=== PATIENT | female | born 1960 | race Caucasian/White ===

== ENCOUNTER → 2023-09-03 07:34 | Outpatient (REF) | payer OTHER, BC, SELFPAY | LOC: RAD 07:34 | PROVIDERS: ATTENDING PHYSICIAN Specialist; FAMILY PHYSICIAN Family Medicine Sports Medicine | DX: M25.551 Pain in right hip (principal); M25.552 Pain in left hip | CPT/HCPCS: 73522 ==

== ENCOUNTER → 2024-02-07 06:54 | Outpatient (REF) | payer OTHER, BC, SELFPAY | LOC: RAD 06:54 | PROVIDERS: ATTENDING PHYSICIAN Neurological Surgery; FAMILY PHYSICIAN Family Medicine Sports Medicine | DX: M54.16 Radiculopathy, lumbar region (principal) | CPT/HCPCS: 72110; 72131 ==

== ENCOUNTER 2024-08-10 13:34 | Inpatient (IN) | payer OTHER, BC, SELFPAY ==
[2024-08-10] VITALS (15 sets, daily range): BP systolic 97–160; BP diastolic 71–99; PULSE 69–135; BMI 26.4
--- NOTE | 2024-08-10 10:41 | ED.GENMED ---
ED Provider Triage
<Alyssa Holcomb PA-C - Last Filed: 08/10/24 10:52>
-
Patient seen by provider in Triage?: Seen in Triage
64 y/o f
htn
[employer] employee, rn
concerned she is having stroke
sudden headache and then she collapsed into a chair when she stood up (onet sxs about 1.5 hours ago)
she said she laid down but realized she doesn't feel right
the doctor at the facility thought her right face seemed off and her speech was mildly slurred
no vision changes, vomiting, confusion
no h/o stroke
no h/o migraines
STROKE ALERT CALLED based on sudden onset of symptoms within the 6 hour timeframe
pt's stroke score is 3 at most (dysarthrhia, LUE weak, and slight flattening R face)
but pt also with tremor R arm on intention; no drift;
odd affect
History of Present Illness
<Alyssa Holcomb PA-C - Last Filed: 08/10/24 10:52>
General
Chief Complaint: Dizziness
Time Seen by Provider: 08/10/24 10:44
<Amauri Cortes DO - Last Filed: 08/10/24 12:38>
General
Source: patient
Exam Limitations: none
History of Present Illness
History of Present Illness:
See MDM
Past History
<Alyssa Holcomb PA-C - Last Filed: 08/10/24 10:52>
Past History
ED Past Medical History: HTN and Hypercholesterolemia
ED Past Surgical History: Cholecystectomy and Other (Gastric surgery/ERCP)
Phy Exam
<Amauri Cortes DO - Last Filed: 08/10/24 12:38>
Physical Exam
Physical Exam:
See MDM
Scores
<Alyssa Holcomb PA-C - Last Filed: 08/10/24 10:52>
NIH Stroke Score
Level of Consciousness: 0 - Alert
LOC Questions: 0-Answers both correctly
LOC Commands: 0-Performs both correctly
Best Horizontal Gaze: 0-Normal
Visual Davies: 0=Normal, no visual loss
Facial Palsy: 1=Minor paralysis
Motor - Right Arm: 0=No drift 10 seconds
Motor - Left Arm: 1=Drift < 10 seconds
Motor - Right Le-No drift 5 seconds
Motor - Left Le-No drift 5 seconds
Limb Ataxia: 0-Absent
Sensation: 0-Normal
Best Language: 0-No aphasia
Dysarthria: 1-Mild slurring
Extinction and Inattention: 0-No abnormality
Total Score:: 3
<Amauri Cortes DO - Last Filed: 08/10/24 12:38>
NIH Stroke Score
Motor - Left Le-No drift 5 seconds
Total Score:: 3
Course
<Alyssa Holcomb PA-C - Last Filed: 08/10/24 10:52>
Orders/Labs/Results
Orders:
Orders
08/10/24 10:45
CT HEAD STROKE ALERT W/o Cont Urgent
Comment:
Reason For Exam: slurred speech, headache
CT HEAD/NECK ANG STROKE ALERT Urgent
Comment:
Reason For Exam: slurred speech, headache
08/10/24 10:46
NEUROLOGY CONSULT Urgent
Consulting Provider: Ophelia Morales
Was physician already notified: Yes
08/10/24 10:47
Electrocardiogram (*1) Urgent
Reason for Study: TIA/Stroke
EKG- Treatment ONCE
08/10/24 11:33
Type+Screen Urgent
Complete Blood Count/With Diff Urgent
Comprehensive Metabolic Panel Urgent
PTT Urgent
Prothrombin Time Urgent
Troponin I Urgent
08/10/24 11:41
ABO2 Urgent
BBK Wristband Number:
Associate notified that ABO2 has been ordered: [id number]
Date: 08/10/24
Time: 11:42
Mine Laborer ID: [id number]
Abnormal Lab Results
08/10/24
11:33
WBC 2.9 L 10^3/uL
(4.8-10.8)
RBC 3.92 L 10^6/uL
(4.20-5.40)
MCV 105.6 H fL
(81.0-99.0)
MCH 36.0 H pg
(27.0-31.0)
Plt Count 106 L 10^3/uL
(130-400)
Absolute Lymphs (auto) 0.6 L 10^3/uL
(1.2-3.4)
Glucose 102 H mg/dl
(70-99)
AST 88 H U/L
(14-36)
ALT 87 H U/L
(0-35)
08/10/24 11:33
08/10/24 11:33
Vital Signs
Initial and Last Documented VS:
Initial Vital Signs
Pulse Resp BP Pulse Ox
109 18 150/99 100
08/10/24 10:42 08/10/24 10:42 08/10/24 10:42 08/10/24 10:42
Last Documented Vital Signs
Temp Pulse Resp BP Pulse Ox
97.8 F 109 18 150/99 100
08/10/24 11:02 08/10/24 10:42 08/10/24 10:42 08/10/24 10:42 08/10/24 10:42
<Amauri Cortes, DO - Last Filed: 08/10/24 12:38>
Orders/Labs/Results
Orders:
Orders
08/10/24 10:45
CT HEAD STROKE ALERT W/o Cont Urgent
Comment:
Reason For Exam: slurred speech, headache
CT HEAD/NECK ANG STROKE ALERT Urgent
Comment:
Reason For Exam: slurred speech, headache
08/10/24 10:46
NEUROLOGY CONSULT Urgent
Consulting Provider: Ophelia Morales
Was physician already notified: Yes
08/10/24 10:47
Electrocardiogram (*1) Urgent
Reason for Study: TIA/Stroke
EKG- Treatment ONCE
08/10/24 11:33
Type+Screen Urgent
Complete Blood Count/With Diff Urgent
Comprehensive Metabolic Panel Urgent
PTT Urgent
Prothrombin Time Urgent
Troponin I Urgent
08/10/24 11:41
ABO2 Urgent
BBK Wristband Number:
Associate notified that ABO2 has been ordered: [id number]
Date: 08/10/24
Time: 11:42
Mine Laborer ID: [id number]
Abnormal Lab Results
08/10/24
11:33
WBC 2.9 L 10^3/uL
(4.8-10.8)
RBC 3.92 L 10^6/uL
(4.20-5.40)
MCV 105.6 H fL
(81.0-99.0)
MCH 36.0 H pg
(27.0-31.0)
Plt Count 106 L 10^3/uL
(130-400)
Absolute Lymphs (auto) 0.6 L 10^3/uL
(1.2-3.4)
Glucose 102 H mg/dl
(70-99)
AST 88 H U/L
(14-36)
ALT 87 H U/L
(0-35)
01/06/25 11:33
08/10/24 11:33
Vital Signs
Initial and Last Documented VS:
Initial Vital Signs
Pulse Resp BP Pulse Ox
109 18 150/99 100
08/10/24 10:42 08/10/24 10:42 08/10/24 10:42 08/10/24 10:42
Last Documented Vital Signs
Temp Pulse Resp BP Pulse Ox
97.8 F 109 18 150/99 100
08/10/24 11:02 08/10/24 10:42 08/10/24 10:42 08/10/24 10:42 08/10/24 10:42
<Amauri Cortes, DO - Last Filed: 08/10/24 12:38>
MDM/Problems Addressed
Differential Diagnosis Includes:
HPI and MDM Narrative:
64-year-old female presenting to the emergency department for concern for headache, slurred speech and left-sided weakness. 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 She was seen by the onsite procurement clerk and there is
concern for left-sided facial drooping. On arrival to the emergency department, a stroke alert was called from triage and she was sent directly to CT scan. Immediately, neurology was at bedside
Upon further questioning, it appears that symptoms started around 7 AM which puts her out of the TNK window. Patient got to work at 630 she started writing her note around 7 AM. At that time, she realized that her handwriting was abnormal
Physical exam
General: Well appearing and non-toxic
HEENT: protecting airway
Neck: appears supple
CV: No evidence of cyanosis. Regular rate and rhythm
Resp: No accessory muscle use
Abd: Non-distended
Extremities: No deformities
Neuro: alert. Very slight flattening of left nasal fold. Very mild dysarthria
Psych: Normal affect
Skin: Intact
Problems Addressed including Acute and Chronic Conditions affecting care:
1. Strokelike symptoms
Acuity: acute
Prognosis: stable
Details: Given onset, stroke alert called and patient sent to CT scanner immediately
Updates
CTA negative. Blood without clinical significant abnormalities. Will admit for further workup
Differential Diagnosis (but not limited to): Stroke, intracranial hemorrhage, TIA
Testing considered: Carotid ultrasound
Drug therapy (if applicable): OTC meds, please see d/c instruction regarding Rx drugs
Amount and/or Complexity of Data Reviewed
Clinical info obtained from: Patient
External data reviewed: N/A
Labs I independently reviewed (but not limited to): Hemoglobin
Radiology: The CT scan was personally and independently reviewed. In addition, official CT report reviewed.
Pulse Ox: not hypoxic
EKG independently reviewed: Sinus tachycardia, normal axis, no STEMI
Schedule Planning Manager: Sinus rhythm
Critical Care: N/A
Risk of Complication:
Social Determinants of health: Good social support
Discussed with other providers: Neurologist, Hospitalist
Escalation of Care includes Admit/Obs: Given strokelike symptoms and ongoing symptoms, will admit
Occasional wrong word or 'sound a like' substitutions may have occurred due to the inherent limitations of voice recognition software. Read the chart carefully and recognize, using context, where substitutions have occurred.
<Amauri Cortes DO - Last Filed: 08/10/24 12:38>
*Critical Care Note
Total Time (30-74mins, 75-104mins- exclusive of procedures): Not Applicable
ED Attending Note
<Alyssa Holcomb PA-C - Last Filed: 08/10/24 10:52>
-
Portions of this chart may have been created with voice recognition software.� Occasional wrong word or��sound alike� substitutions may have occurred due to the inherent limitations of voice recognition software.
Discharge Plan
Departure
Patient Disposition: Admit
Date of Disposition: 08/10/24
Time of Disposition: 12:36
Admit to: Med/Surg
Presentation/result/management discussed w/ accepting /: Hospitalist
Discharge Problem:
Stroke-like symptoms, Acute lower GI bleeding
Prescriptions:
No Action
meloxicam 15 mg tablet
15 mg PO DAILY
clonazepam 0.5 mg tablet
0.5 mg PO BIDPRN PRN (Reason: tinnitis)
methocarbamol 750 mg tablet
750 mg PO BIDPRN PRN (Reason: muscle spasm)
valsartan 160 mg tablet
160 mg PO BID
rosuvastatin 20 mg tablet
20 mg PO DAILY
cholecalciferol (vitamin D3) [Vitamin D3] 50 mcg (2,000 unit) Capsule
100 mcg PO DAILY
Referrals:
Oneal Dockery DO [Family Provider] -
Interventions
Interventions:
ED- Neurological Assessment Last Done: 08/10/24 11:05
Discharge Date and Time
Print Language: PUERTO RICAN
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
[2024-08-10 11:33] LABS: Glucose - Point of Care 94 mg/dl (70-99)
[2024-08-10 11:51] LABS: INR 0.91; PT 12.6 Sec (11.4-14.6)
[2024-08-10 11:52] LABS: APTT 26.7 Sec (23.4-35.0)
[2024-08-10 11:55] LABS: ALT (SGPT) 87 U/L (0-35); AST (SGOT) 88 U/L (14-36); Albumin 4.8 g/dl (3.5-5.0); Alkaline Phosphatase 105 U/L (38-126); Blood Urea Nitrogen 17 mg/dl (7-17); Calcium 9.7 mg/dl (8.4-10.2); Carbon Dioxide 24 mmol/L (22-30); Chloride 104 mmol/L (98-107); Glucose 102 mg/dl (70-99); Potassium 4.3 mmol/L (3.5-5.1); Sodium 139 mmol/L (135-145); Total Bilirubin 0.4 mg/dl (0.2-1.3); Total Protein 7.6 g/dl (6.3-8.2); eGFR > 60.00
[2024-08-10 12:06] LABS: Troponin I < 0.012 ng/ml
[2024-08-10 12:18] LABS: % Basophils 0.3 % (0-2); % Eosinophils 2.4 % (0-6); % Immature Granulocytes 0.3 % (0-0.5); % Lymphocytes 21.6 % (20.5-51.1); % Monocytes 5.5 % (1.7-9.3); % Neutrophils 69.9 % (42.2-75.2); Absolute Eosinophils 0.1 10^3/uL (0-0.7); Absolute Lymphocytes 0.6 10^3/uL (1.2-3.4); Absolute Monocytes 0.2 10^3/uL (0.1-0.6); Hematocrit 41.4 % (37.0-47.0); Hemoglobin 14.1 g/dL (12.0-16.0); Mean Corp Hgb Conc. 34.1 g/dL (33.0-37.0); Mean Corpuscular Volume 105.6 fL (81.0-99.0); Mean Platelet Volume 9.2 fL (7.4-10.4); Nucleated Red Blood Cells % 0 %; Platelet Count 106 10^3/uL (130-400); Red Blood Cell Count 3.92 10^6/uL (4.20-5.40); Red Cell Dist. Width 12.4 % (11.5-14.5); White Blood Cell Count 2.9 10^3/uL (4.8-10.8)
--- NOTE | 2024-08-10 12:43 | HPS.HSE ---
Family Physician
-
Family Physician: Oneal Dockery
Chief Complaint
-
left sided weakness
History of Present Illness
64-year-old woman with pMH for chronic tinnitus,HLD, muscle spasm, HTN presented to us with sudden onset of CORADO, with left sided weakness since this morning. today as she was getting up from the chair, she fell backwards with her hair to the floor.
denied hitting head. she fell on her left side. for past one week, she is feeling very tired, weak. today patient stated dizzy and she was having trouble writing. denied fever, chills, congestion, cough. denied chest pain, sob. The patient admits to
6 months of intermittent hematochezia which had significantly worsened today in the morning. She also reports right sided abdominal pain as well as chronic bilateral tinnitus.denied dysuria or hematuria. she is on meloxicam for her back pain.
CT, CTA with no acute findings. admitting for further management.
hgb stable.last colonoscopy was six years ago.
Medical History
Past Medical History
Past Medical History: Reports Other
Additional Past Medical History:
Hypertension
Hyperlipidemia
Past Surgical History: Reports Other
Additional Past Surgical History:
Cholecystectomy
hxt of colostomy and reversal
Social History
Tobacco: Non-smoker
Alcohol: None
Drug: None
Employment: Employed
Family History
Family History: Not pertinent
Allergies / Home Medications
Allergies reflects when Allergies were last updated in [employer].
Home Medications with original date entered in [employer]
Allergy/Medication List:
Allergies
Allergy/AdvReac Type Severity Reaction Status Date / Time
No Known Allergies Allergy Unverified 04/07/23 12:57
Home Medications
cholecalciferol (vitamin D3) 50 mcg (2,000 unit) capsule (Vitamin D3) 100 mcg PO DAILY 08/10/24
clonazepam 0.5 mg tablet 0.5 mg PO BIDPRN PRN tinnitis 08/10/24
meloxicam 15 mg tablet 15 mg PO DAILY 08/10/24
methocarbamol 750 mg tablet 750 mg PO BIDPRN PRN muscle spasm 08/10/24
rosuvastatin 20 mg tablet 20 mg PO DAILY 08/10/24
valsartan 160 mg tablet 160 mg PO BID 08/10/24
Review of Systems
-
Constitutional: Reports No Symptoms
EENT: Reports No Symptoms
Respiratory: Reports No Symptoms
Cardiac: Reports No Symptoms
Abdomen/GI: Reports Abdominal Pain, Diarrhea and Bloody Stools
: Reports No Symptoms
Musculoskeletal: Reports No Symptoms
Skin: Reports No Symptoms
Neurological: Reports Dizzy, Headache and Weakness
Endocrine: Reports No Symptoms
Hematologic/Lymphatic: Reports No Symptoms
Psych: Reports No Symptoms
Physical Exam
Vital Signs
Vital Signs
Temp Pulse Resp BP Pulse Ox
97.8 F 109 18 150/99 100
08/10/24 11:02 08/10/24 10:42 08/10/24 10:42 08/10/24 10:42 08/10/24 10:42
Physical Exam
General: Well Developed, Well Nourished and No Apparent Distress
HEENT: NormoCephalic, Moist mucous membranes and Atraumatic
Respiratory: Clear
Cardiac: S1/S2 and Regular Rhythm; No Murmur or Rub
GI: Soft, Non Tender, Non Distended and Normal Bowel Sounds; No Organomegaly
Rectal: Deferred by Provider
Musculoskeletal: No Clubbing, No Cyanosis and No Edema
Skin: No Rash
Neuro: Nonfocal/grossly intact and Other (left sided weaknes)
Psych: Calm
Laboratory Results
-
08/10/24 11:33
08/10/24 11:33
Laboratory Results
PT 12.6 Sec (11.4-14.6) 08/10/24 11:33
INR 0.91 08/10/24 11:33
APTT 26.7 Sec (23.4-35.0) 08/10/24 11:33
Total Bilirubin 0.4 mg/dl (0.2-1.3) 08/10/24 11:33
AST 88 U/L (14-36) H 08/10/24 11:33
ALT 87 U/L (0-35) H 08/10/24 11:33
Alkaline Phosphatase 105 U/L (38-126) 08/10/24 11:33
Troponin I < 0.012 ng/ml 08/10/24 11:33
Data Reviewed
-
Lab Data: Labs Reviewed by me
Impression/Plan
-
# Bright rectal bleeding
-Hemoglobin stable at 14.1
-Continue to trend hemoglobin
-Transfuse to hemoglobin less than 7
-IV PPI
-Clear liquid diet
-GI consult
# New onset headache/left sided weakness rule out acute CVA/TIA
- head neck CTA with no significant stenosis of carotid arterial bilaterally. No findings to suggest internal carotid artery and vertebral artery dissection bilaterally/no findings to suggest proximal intracranial artery stenosis bilaterally.0.9 cm
slightly low attenuation right lobe thyroid nodule. This could be better evaluated with elective Thyroid Ultrasound.
Head CT with no acute intracranial abnormality
-Obtain orthostatics
-Aspirin 81 mg day
-Obtain MRI PT/OT consult
#sinus tachycardia
-HR tachy at times
-ctm
# Leukopenia/thrombocytopenia
-WBC 2.9, platelets 106
-Continue to monitor
# Chronic transaminitis
-AST 88, ALT 87
-Patient denied any abdominal pain
-Continue to monitor
#chronic tinnitus
-clonazepam continued
#chronic back pain
-hold meloxicam
-continue methocarbamol
#HLD
-statin
#essential HTN
-losartan continued with hold parameter
#DVT prophylaxis
-scd
b
-full code
--- NOTE | 2024-08-10 13:30 | W.PN.UPDATE ---
Update Note
Progress Note Update
This note serves as an addendum to the H&P by shoe lacer TIKI Ashanti BAY
HPI
64 F Non Smoker, [email or web address] employee , Lt handed , HX chronic peripheral vertigo, HLD, HTN seen at ER
- unwitnessed fall at her office prior to presentation.
- per EMS ' Based on EMR she 'collapsed into a chair when she stood up'
- sudden headache and then she collapsed into a chair when she stood up (onet sxs about 1.5 hours ago)
- the doctor at the facility thought her right face seemed off and her speech was mildly slurred
- concerned is having stroke ' STROKE ALERT CALLED' based on sudden onset of symptoms within the 6 hour timeframe
- stroke score is 3 at most (dysarthrhia, LUE weak, and slight flattening R face)
- tremor R arm on intention; no drift; odd affect
- HX chronic bilateral tinnitus.
Reports 6 months of intermittent hematochezia which had significantly worsened today in the morning.
- reports right sided abdominal pain a
ROS
no vision changes, vomiting, confusion
No prior HX stroke
No HX migraines
Vital Signs
Temp Pulse Resp BP Pulse Ox
97.8 F 109 18 150/99 100
08/10/24 11:02 08/10/24 10:42 08/10/24 10:42 08/10/24 10:42 08/10/24 10:42
PE
Gen: slow cognitive speed
HEENT: symmetric face
Neck: supple
Lungs: CTA
Cor: RRR S1 S2
Abdomen: tender Rt LQ. No rigidity
MAIL PROCESSING ASSOCIATE: Increased motor tone Rt > Lt , cogwheel rigidity on the rt
MS: no edema
Psych: flat affect
Data
Abnormal Lab Results
08/10/24
11:33
WBC 2.9 L
RBC 3.92 L
MCV 105.6 H
MCH 36.0 H
Plt Count 106 L
Absolute Lymphs (auto) 0.6 L
Glucose 102 H
AST 88 H
ALT 87 H
Pending Covid
EKG
SINUS TACHYCARDIA
OTHERWISE NORMAL ECG
WHEN COMPARED WITH ECG OF 07-APR-2023 13:00,
NO SIGNIFICANT CHANGE WAS FOUND
Confirmed by JONAH CADENA, [facility] ([id number] on 08/10/2024 11:16:31 AM
08/10/24 HCT
No acute intracranial abnormality. ASPECT score: 10
H & N CTA
No hemodynamically significant stenosis of the carotid arterial system bilaterally.
No findings to suggest internal carotid artery or vertebral artery dissection bilaterally.
No findings to suggest proximal intracranial arterial stenosis bilaterally.
Approximate 0.9 cm slightly low attenuation right lobe thyroid nodule.
This could be better evaluated with elective Thyroid Ultrasound
No prior hospitalist admission:
ASSESSMENT & PLAN
Stroke alert; NEG HCT. NEG H & N CTA
Clinical features of Parkinsonism.
Chronic peripheral vertigo HX
-Fall precautions
- to btain orthostatic vital signs.
- Avoid dopamine blockers
- Aspirin 81 mg once a day if no contraindications from GI perspective.
- TFTs, PTH, ESR, CRP
- Brain MRI without gadolinium in AM
- PT
- Neuro consulted
Intermittent hematochezia vs bright rd blood
RLQ tenderness. FHX POS for Colon CA
Stable Hgb, Stable HD state
Denied HX Hemorrhoids
DDX: LGIB ? ischemic colitis
- Lactate
- Clear
- trend H & H
- GI consult
DVT Px: SCD
Full code
IP TLM
--- NOTE | 2024-08-10 14:17 | CON.GI ---
Addendum entered and electronically signed by Kia Lan Do, MD 08/10/24 16:14:
I saw and examined the patient.
The MANAGED SERVICES SALES CONSULTANT's note was reviewed and I agree with the note.
Comment: Angelica is a 64yo W works in [employer] with h/o HTN, CBD stone s/p perforation with hepaticojejunostomy 2004 complicated by ulcer bleeding followed by redo surgery 2006 who presents with rectal bleeding and diffuse abdominal pain. Of
note due to back pain recently using mobic daily basis. No other nsaids. She tried to see GI but could not get appt until October 2024. She is concerned for colon cancer as both parents with it in the past. Her last colonoscopy was 6yrs ago at
[place] and EGD more than 20yrs ago. Vitals stable. exam diffusely tender to palpation. rectal with normal tone no stool output. Labs reviewed normal Hbg. AST/ALT mildly elevated with normal TB/AP
Impression
- Diffuse abd pain
Given her history of several surgeries ddx is wide including pSBO, stricture etc
PUD in setting of mobic use is another consideration
- BRBPR
- HTN
- H/o CBD stone s/p ERCP with perf s/p 2 surgeries
- Tinnitus
- GERD
Recommendations
- Obtain records from [facility] to see her post surgical anatomy
- Recommend CTAP with oral IV contrast
- Protonix 40mg IV BID
- CLD given her severity of pain
- IVF
- Add on lipase
- Monitor stool output and serial H/H
Will follow with you
Original Note:
Consultation
-
Date/Time Consultation Requested: 08/10/24 1400
Date/Time Consultation Performed: 08/10/24 1420
Requesting Provider: LEXA Gonsales
Performing Provider: LEXA Curry, Kia Benítez MD
Reason for Consultation: rectal bleeding, abdominal pain, elevated transamines
Medical History
Chief Complaint / HPI
History of Present Illness:
Pt is a 64yo with hx HTN, hypercholesterolemia and ERCP 2004 for CBD stone with duodenal perforation at [facility] with gastric bypass, ? colonoscopy and feeding tube. She continued with bleeding after procedure and had revision around 2006. She has
been doing well for years but developed intermittent rectal bleeding with some dripping of blood and change in bowel pattern over last few months. She called GI but was awaiting appt in August. She was now noted with some confusion this am then
had diarrhea with bleeding and unwitnessed fall at work and left side weakness . She was then referred to ER for eval. With neuro symptoms she has stroke alert and asked to see for rectal bleeding, abdominal pain and mild LFT elevation with AST
88 and ALT 87. Pt also noted with leukopenia and thrombocytopenia.
In review with patient she admit to newly starting Meloxicam for back discomfort. She admits to occasional GERD and also some RLQ pain along with some nausea and vomiting. She is concerned as also both parents with hx colon CA in 80's. She
denies dysphagia, constipation or black stools. She admits to know mild LFT elevation in past and occasional Tylenol use but denies hx IVDA or hepatitis in past. Last EGD around [id number] with other GI issues and last colonoscopy at [place] 6
years ago recalls as normal.
Past Medical History
Past Medical History: HTN, Hypercholesterolemia and Other (chronic Tinnitus, muscle spasm, HTN)
Past Surgical History: Other (s/p ERCP 2004 for CBD stone with duodenal perforation with gastric bypass with feeding tube placement with GI bleed after procedure and eventual revision at [facility], colostomy and reversal )
Social History
Tobacco: Non-Smoker
Alcohol: None
Drug: None
Personal:
Living: With Family
Employment: Employed
Family History
Family History: Other (both parents with colon CA in 80's, sister with appendicitis )
Allergies / Home Medications
Allergy/AdvReac Type Severity Reaction Status Date / Time
No Known Allergies Allergy Unverified 04/07/23 12:57
�Medication �Instructions �Recorded
cholecalciferol (vitamin D3) 50 100 mcg PO DAILY 08/10/24
mcg (2,000 unit) capsule (Vitamin
D3)
clonazepam 0.5 mg tablet 0.5 mg PO BIDPRN PRN tinnitis 08/10/24
meloxicam 15 mg tablet 15 mg PO DAILY 08/10/24
methocarbamol 750 mg tablet 750 mg PO BIDPRN PRN muscle spasm 08/10/24
rosuvastatin 20 mg tablet 20 mg PO DAILY 08/10/24
valsartan 160 mg tablet 160 mg PO BID 08/10/24
Review of Systems
-
History Source: Patient
Constitutional: Reports No Symptoms
EENT: Reports No Symptoms
Respiratory: Reports No Symptoms
Abdomen/GI: Reports Abdominal Pain, Nausea, Vomiting, Diarrhea, Bloody Stools and Other (+ change in bowel pattern )
: Reports No Symptoms
Musculoskeletal: Reports No Symptoms
Skin: Reports No Symptoms
Neurological: Reports Weakness
Endocrine: Reports No Symptoms
Hematologic/Lymphatic: Reports Bleeding
Vital Signs
Temp Pulse Resp BP Pulse Ox
97.8 F 109 18 150/99 100
08/10/24 11:02 08/10/24 10:42 08/10/24 10:42 08/10/24 10:42 08/10/24 10:42
Physical Exam
Exam
General: Well Developed, Well Nourished and No Apparent Distress
HEENT: Normocephalic and Anicteric
Respiratory: Clear
Cardiac: Regular Rhythm
GI: Soft, Non Distended, Tender (RLQ) and Other (mid line scar-- LLQ scar ? prior colostomy vs feeding tube )
Rectal: Other (per Do no hemorrhoids, no stool to test no blood seen )
Musculoskeletal: No Clubbing and No Cyanosis
Skin: Warm and Dry
Neuro: Awake, Alert, AO x 3 and Other (some thickness to speech )
Psych: Calm
Results
WBC 2.9 10^3/uL (4.8-10.8) L 08/10/24 11:33
Hgb 14.1 g/dL (12.0-16.0) 08/10/24 11:33
Hct 41.4 % (37.0-47.0) 08/10/24 11:33
MCV 105.6 fL (81.0-99.0) H 08/10/24 11:33
Plt Count 106 10^3/uL (130-400) L 08/10/24 11:33
Absolute Neuts (auto) 2.0 10^3/uL (1.4-6.5) 08/10/24 11:33
PT 12.6 Sec (11.4-14.6) 08/10/24 11:33
INR 0.91 08/10/24 11:33
APTT 26.7 Sec (23.4-35.0) 08/10/24 11:33
Sodium 139 mmol/L (135-145) 08/10/24 11:33
Potassium 4.3 mmol/L (3.5-5.1) 08/10/24 11:33
Chloride 104 mmol/L (98-107) 08/10/24 11:33
Carbon Dioxide 24 mmol/L (22-30) 08/10/24 11:33
BUN 17 mg/dl (7-17) 08/10/24 11:33
Creatinine 1.0 mg/dL (0.6-1.0) 08/10/24 11:33
Calcium 9.7 mg/dl (8.4-10.2) 08/10/24 11:33
Total Bilirubin 0.4 mg/dl (0.2-1.3) 08/10/24 11:33
AST 88 U/L (14-36) H 08/10/24 11:33
ALT 87 U/L (0-35) H 08/10/24 11:33
Alkaline Phosphatase 105 U/L (38-126) 08/10/24 11:33
Diagnostic Image Results:
08/10/24- HCT-No acute intracranial abnormality.
08/10/24 CT HEAD/NECK ANG STROKE ALERT
No hemodynamically significant stenosis of the carotid arterial system bilaterally.
No findings to suggest internal carotid artery or vertebral artery dissection bilaterally.
No findings to suggest proximal intracranial arterial stenosis bilaterally.
Approximate 0.9 cm slightly low attenuation right lobe thyroid nodule. This could be better evaluated with elective Thyroid Ultrasound.
Prior GI Procedures:
EGD: last [id number] with prior GI bleed and ERCP
Colonoscopy: last 6 years ago recall as normal at [place]
Assessment / Plan
-
Pt is a 64yo with hx HTN, hypercholesterolemia and ERCP 2004 for CBD stone with duodenal perforation at [facility] with gastric bypass, ? colonoscopy with reversal and feeding tube. She continued with bleeding after procedure and had revision around
2006. She has been doing well for years but developed intermittent rectal bleeding with some dripping of blood and change in bowel pattern over last few months. She was noted today with diarrhea, bleeding and also confusion with fall, weakness and
left side weakness s/p stroke alert. She is also noted with mild transaminase elevation, mild thrombocytopenia and leukopenia on admission.
-intermittent rectal bleeding
-RLQ pain
-mild transaminase elevation with hx prior elevation
-new onset headache with left side weakness
-leukopenia
-thrombocytopenia
-macrocytosis
-recent Mobic use
-hx ERCP 2004 for CBD stone with duodenal perforation and bypass complete with recurrent bleeding then revision, colostomy with reversal
other med problems:
-HTN
-hypercholesterolemia
-chronic tinnitus
-chronic back pain
-hx kathy
PLAN:
etiology of rectal bleeding related to upper with NSAID use vs lower hemorrhoid vs other as pt reports more red blood--- no blood noted on exam
trend hbg and stool pattern
with some worsening abdominal pain proceed with CT to confirm anatomy and eval for colitis, diverticulitis etc
t/c eventual GI work up with EGD/colon when stable from neuro standpoint
trend LFT's may be chronic issue add hepatitis panel for AM, await CT
trend platelets
work up for weakness, mental status issues per neurology -- MRI brain pending
pt scheduled 08/[address] Weir for follow up
-
-
Thank you for consultation and allowing me to participate in the patient's care. Please call the valuation manager GI physician during the after hours with any questions or concerns.
[2024-08-10 14:22] LABS: COVID-19 Antigen Negative (Negative)
[2024-08-10 14:39] LABS: Glycohemoglobin (HgbA1c) 5.6 % (4.0-5.6)
--- NOTE | 2024-08-10 15:05 | PTOTSP ---
Speech Language Pathology:
Initial speech therapy assessment completed. Oropharyngeal swallow grossly within functional limits at bedside with no overt s/s aspiration observed across PO trials. Speech quality characterized by mildly reduced vocal volume. Patient with
receptive/expression language that appears intact with slow processing speed observed.
Recommend:
1) Regular solid, thin liquid diet
2) Meds as tolerated
3) Aspiration precautions
4) CLINICAL EDUCATION ACADEMIC COORDINATOR to f/u to ensure diet tolerance and for further speech and cog-linguistic tx as indicated
[2024-08-10 15:17] LABS: Erythrocyte Sed Rate 22 mm/hour (0-20)
[2024-08-10] MEDS: DILAUDID 1 MG IV ×2 (15:30→20:53)
[2024-08-10] MEDS: PROTONIX IV 40 MG IV ×2 (15:40→20:55)
[2024-08-10] MEDS: OMNIPAQUE 50 ML PO (15:40)
[2024-08-10] MEDS: NSS 1000 IV (15:41)
[2024-08-10] MEDS: NSS (PRESERVATIVE FREE) 10 ML IV ×2 (15:41→20:54)
--- NOTE | 2024-08-10 16:38 | PTCARENOTE ---
pt aaox3. nihss 0, pt states rlq abd pain. pain med as given. ivf running as ordered. ct scan dye started.
[2024-08-10 20:41] LABS: Hematocrit 34.6 % (37.0-47.0); Hemoglobin 12.2 g/dL (12.0-16.0)
--- NOTE | 2024-08-10 20:45 | PTCARENOTE ---
Pt arrived to room 434-01. Pt ambulated from stretcher to bed with standby assist. Pt AAOx3, VSS. Refer to pt NIH scale. Pt oriented to room, call victoria placed within reach. Pt told to use call victoria for assistance ambulating, pt agreeable.
[2024-08-10] MEDS: DIOVAN 160 MG PO (20:54)
[2024-08-11] VITALS (8 sets, daily range): BP systolic 90–138; BP diastolic 54–85; PULSE 64–113; O2SAT 97
[2024-08-11] MEDS: DILAUDID 1 MG IV ×3 (02:33→18:19)
[2024-08-11 08:11] LABS: Hematocrit 36.7 % (37.0-47.0); Mean Corp Hgb Conc. 35.4 g/dL (33.0-37.0); Mean Corpuscular Hgb 36.1 pg (27.0-31.0); Mean Corpuscular Volume 101.9 fL (81.0-99.0); Red Cell Dist. Width 12.2 % (11.5-14.5); White Blood Cell Count 2.7 10^3/uL (4.8-10.8)
[2024-08-11 08:30] LABS: ALT (SGPT) 70 U/L (0-35); AST (SGOT) 61 U/L (14-36); Albumin 4.2 g/dl (3.5-5.0); Alkaline Phosphatase 89 U/L (38-126); Direct Bilirubin 0.1 mg/dl (0.0-0.4); Total Bilirubin 0.5 mg/dl (0.2-1.3); Total Cholesterol 228 mg/dl (50-199); Total Protein 6.6 g/dl (6.3-8.2); Triglyceride 191 mg/dl (10-149); Very Low Density Lipoprotein 38 mg/dl (0-30)
[2024-08-11 08:37] LABS: Mean Platelet Volume 8.9 fL (7.4-10.4); Platelet Count 91 10^3/uL (130-400)
[2024-08-11 08:47] LABS: HDL Cholesterol 116 mg/dl; LDL Cholesterol, Calculated 74 mg/dl
[2024-08-11 09:05] LABS: Hepatitis B Surface Antigen Negative (Negative)
[2024-08-11 09:07] LABS: Hepatitis A IgM Antibody Negative (Negative); Hepatitis B Core Ab, IgM Negative (Negative)
[2024-08-11 09:23] LABS: Hepatitis A Antibody, Total Negative (Negative); Hepatitis B Core Ab, Total Negative (Negative); Hepatitis B Surface Antibody Positive; Hepatitis C Antibody Negative (Negative)
[2024-08-11] MEDS: DIOVAN 160 MG PO ×2 (09:51→20:14)
[2024-08-11] MEDS: CRESTOR 20 MG PO (09:51)
[2024-08-11] MEDS: NSS (PRESERVATIVE FREE) 10 ML IV ×2 (09:51→20:14)
[2024-08-11] MEDS: PROTONIX IV 40 MG IV ×2 (09:52→20:13)
--- NOTE | 2024-08-11 12:51 | W.PN.HOSP.TC ---
Addendum entered and electronically signed by Reba Murcia DO 08/11/24 16:51:
Discussed incidental thyroid nodule w the patient, she is aware and plans to f/u outpatient for ultrasound
Original Note:
Today's Communication/Plan
-
#Clinical features of Parkinsonism, no evidence for acute stroke
-Discuss plan for OP f/u with Neuro, possible Mirapex
# Acute GI bleed and RLQ abdominal pain, hemoglobin stable, patient still w severe RLQ abd pain
-IV Dilaudid prn
-cont IVF, IV PPI BID, discuss with GI evaluation today for recs - possible scope inpatient vs outpatient
#repeat CBC, CMP in am, monitor labs
#Incidental thyroid nodule
-f/u w OP US
Assessment / Plan
Assessment / Plan
Pt is a 64yo with hx HTN, CBD stone s/p perforation with hepaticojejunostomy 2004 complicated by ulcer bleeding followed by redo surgery 2006 , hypercholesterolemia and ERCP 2004 for CBD stone with duodenal perforation at [facility] with gastric
bypass, Uses Mobic daily; concerned for colon cancer due to family history. Colonoscopy 6yrs ago at [place] and EGD more than 20yrs ago.
#Clinical features of Parkinsonism, no evidence for acute stroke
#Chronic peripheral vertigo HX
- continue Fall precautions
- Avoid dopamine blockers
- Aspirin 81 mg once a day
- Discuss pt with Neurology- likely Parkinsonism/discussed starting Mirapex with patient
- PT eval
# Acute GI bleed and RLQ abdominal pain, hemoglobin stable, patient still w severe RLQ abd pain
-IV Dilaudid prn
-cont IVF
-IV PPI BID
-pending GI evaluation today for recs - possible scope inpatient vs outpatient
#Leukopenia, unsure chronicity , monitor with differential
#Thrombocytopenia, unsure chronicity, monitor with repeat lab
#Transaminitis, normal bilirubin
-patient said she's had this outpatient
#Incidental thyroid nodule
-f/u w OP US
#HTN, stable
DVT Px: SCD
Full code
IP TLM
Anticipated Discharge: 24 - 48 hours
Subjective/Interval History
-
Date of Service: August 11, 2024
The patient still c/o severe RLQ abdominal pain, had Dilaudid IV today. On clear liquids. Last episode of BRB per rectum yesterday. Family history of colon cancer (dad, mom, 3 aunts)
MRI negative for acute stroke. No hematemesis.
No CP, no SOB, Neuro saw pt this am, told nurse OK to dc NIH scores.
Objective Data
-
Labs:
Laboratory Results
08/11/24
07:11
WBC 2.7 L
Hgb 13.0
Hct 36.7 L
Plt Count 91 L
Total Bilirubin 0.5
AST 61 H
ALT 70 H
Alkaline Phosphatase 89
Vital Signs:
Vital Signs
Temp Pulse Resp BP Pulse Ox
98.4 F 79 20 132/74 99
08/11/24 11:19 08/11/24 11:19 08/11/24 11:19 08/11/24 11:19 08/11/24 11:19
I&O
08/10/24 08/11/24 08/12/24
06:59 06:59 06:59
Intake Total 480 / 480
Balance 480 / 480
[2024-08-11 13:29] LABS: Lipase 129 U/L (23-300)
--- NOTE | 2024-08-11 13:54 | W.PN.GI.CBS2 ---
Addendum entered and electronically signed by Rani Pettit MD 08/11/24 17:18:
I saw and examined the patient.
The DENTAL LABORATORY SUPERVISOR or PA's note was reviewed and I agree with the note.
Comment: Reports 1 episode of bright blood with bowel movements yesterday.
Tolerating clear liquid diet
Given recurrent intermittent rectal bleeding, will plan for colonoscopy. Multiple family members with colon cancer including father, mother and paternal aunts. No genetic testing done as far as patient is aware.
Will do EGD at the same time as she does have some intermittent epigastric discomfort
Thrombocytopenia and leukopenia, agree with outpatient hematology follow-up
Will follow
Original Note:
Today's Communication / Plan
-
etiology of rectal bleeding related to upper with NSAID use vs lower hemorrhoid vs other as pt reports more red blood--- no blood noted on exam 08/10 but more bleeding last PM
CT neg for any acute finding
hbg stable 13
add B12, folate with macrocytosis
will proceed with EGD/colon in am
cont clear diet
consider OP hematology eval for thrombocytopenia and leukopenia
hepatitis panel neg with hep B immunity
requested [place] records if able to review for GI anatomy with multiple surgeries in [id number]
NSAID avoidance
reviewed with Dr. Murcia
Assessment / Plan
-
Pt is a 64yo with hx HTN, hypercholesterolemia and ERCP 2004 for CBD stone with duodenal perforation at [facility] with gastric bypass, ? colonoscopy with reversal and feeding tube. She continued with bleeding after procedure and had revision around
2006. She has been doing well for years but developed intermittent rectal bleeding with some dripping of blood and change in bowel pattern over last few months. She was noted today with diarrhea, bleeding and also confusion with fall, weakness and
left side weakness s/p stroke alert. She is also noted with mild transaminase elevation, mild thrombocytopenia and leukopenia on admission.
08/11/24 CT A/p
1). There is no evidence of acute pathology
2). There is cholecystectomy with mild intrahepatic biliary dilatation which may be seen normally in postcholecystectomy patients.
3). There is 8 mm hepatic cyst
08/11/24 MRI brain normal
-intermittent rectal bleeding
-RLQ pain
-mild transaminase elevation with hx prior elevation
-new onset headache with left side weakness concern for parkinsonism
-leukopenia
-thrombocytopenia
-macrocytosis
-recent Mobic use
-hx ERCP 2004 for CBD stone with duodenal perforation and bypass complete with recurrent bleeding then revision, colostomy with reversal
other med problems:
-GERD
-HTN
-hypercholesterolemia
-chronic tinnitus
-chronic back pain
-hx kathy
-tinnitus
-hepatic cyst on imaging
PLAN:
etiology of rectal bleeding related to upper with NSAID use vs lower hemorrhoid vs other as pt reports more red blood--- no blood noted on exam 08/10 but more bleeding last PM
CT neg for any acute finding
hbg stable 13
add B12, folate with macrocytosis
will proceed with EGD/colon in am
cont clear diet
consider OP hematology eval for thrombocytopenia and leukopenia
hepatitis panel neg with hep B immunity
requested [place] records if able to review for GI anatomy with multiple surgeries in [id number]
NSAID avoidance
reviewed with Dr. Murcia
pt scheduled 08/[address] Weir for follow up may be able to change pending EGD/colon results
Subjective
Subjective
Date of Service: August 11, 2024
on clear diet still with some bleeding last PM while in MRI, abdominal pain improved and noted intermittent
Objective
Data Reviewed
Laboratory Data:
Laboratory Results
08/11/24 07:11
08/10/24 11:33
Laboratory Results
PT 12.6 Sec (11.4-14.6) 08/10/24 11:33
INR 0.91 08/10/24 11:33
APTT 26.7 Sec (23.4-35.0) 08/10/24 11:33
Total Bilirubin 0.5 mg/dl (0.2-1.3) 08/11/24 07:11
AST 61 U/L (14-36) H 08/11/24 07:11
ALT 70 U/L (0-35) H 08/11/24 07:11
Alkaline Phosphatase 89 U/L (38-126) 08/11/24 07:11
Lipase 129 U/L (23-300) 08/11/24 07:11
Vital Signs and I&O:
Vital Signs
Temp Pulse Resp BP Pulse Ox
98.4 F 79 20 132/74 99
08/11/24 11:19 08/11/24 11:19 08/11/24 11:19 08/11/24 11:19 08/11/24 11:19
I&O
08/10/24 08/11/24 08/12/24
06:59 06:59 06:59
Intake Total 480 / 480
Balance 480 / 480
Physical Exam
Physical Exam
HEENT: Anicteric and Moist mucous membranes
Cardiology: Normal Sinus Rhythm
Pulmonary: Clear
GI: Soft, Non Distended and Tender (minimal tenderness improved from 08/10)
Extremities: No Edema
Neuro: Non Focal
--- NOTE | 2024-08-11 14:39 | CM ---
ict development manager reviewed patient's chart and met with patient and patient states she lives with her spouse and son in a split level home, patient was independent with adl's and ambulation, no dme, home when stable, no needs.
PCP: Dr. Oneal Dockery
Pharmacy [facility]
Plan; Home when stable.
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
[2024-08-11] MEDS: NSS 1000 IV (15:19)
[2024-08-11] MEDS: MIRAPEX 0.125 MG PO ×2 (16:21→21:55)
[2024-08-11 16:45] LABS: Vitamin B12 1000 pg/ml (239-931)
--- NOTE | 2024-08-11 17:16 | W.PN.GI.CBS2 ---
Assessment / Plan
-
Pt is a 64yo with hx HTN, hypercholesterolemia and ERCP 2004 for CBD stone with duodenal perforation at [facility] with gastric bypass, ? colonoscopy with reversal and feeding tube. She continued with bleeding after procedure and had revision around
2006. She has been doing well for years but developed intermittent rectal bleeding with some dripping of blood and change in bowel pattern over last few months. She was noted today with diarrhea, bleeding and also confusion with fall, weakness and
left side weakness s/p stroke alert. She is also noted with mild transaminase elevation, mild thrombocytopenia and leukopenia on admission.
08/11/24 CT A/p
1). There is no evidence of acute pathology
2). There is cholecystectomy with mild intrahepatic biliary dilatation which may be seen normally in postcholecystectomy patients.
3). There is 8 mm hepatic cyst
08/11/24 MRI brain normal
-intermittent rectal bleeding
-RLQ pain
-mild transaminase elevation with hx prior elevation
-new onset headache with left side weakness concern for parkinsonism
-leukopenia
-thrombocytopenia
-macrocytosis
-recent Mobic use
-hx ERCP 2004 for CBD stone with duodenal perforation and bypass complete with recurrent bleeding then revision, colostomy with reversal
other med problems:
-GERD
-HTN
-hypercholesterolemia
-chronic tinnitus
-chronic back pain
-hx kathy
-tinnitus
-hepatic cyst on imaging
PLAN:
etiology of rectal bleeding related to upper with NSAID use vs lower hemorrhoid vs other as pt reports more red blood--- no blood noted on exam 08/10 but more bleeding last PM
CT neg for any acute finding
hbg stable 13
add B12, folate with macrocytosis
will proceed with EGD/colon in am
cont clear diet
consider OP hematology eval for thrombocytopenia and leukopenia
hepatitis panel neg with hep B immunity
requested [facility] if able to review for GI anatomy with multiple surgeries in [id number]
NSAID avoidance
reviewed with Dr. Murcia
pt scheduled 08/[address] Weir for follow up may be able to change pending EGD/colon results
Subjective
Subjective
Date of Service: August 11, 2024
Objective
Data Reviewed
Laboratory Data:
Laboratory Results
08/11/24 07:11
08/10/24 11:33
Laboratory Results
PT 12.6 Sec (11.4-14.6) 08/10/24 11:33
INR 0.91 08/10/24 11:33
APTT 26.7 Sec (23.4-35.0) 08/10/24 11:33
Total Bilirubin 0.5 mg/dl (0.2-1.3) 08/11/24 07:11
AST 61 U/L (14-36) H 08/11/24 07:11
ALT 70 U/L (0-35) H 08/11/24 07:11
Alkaline Phosphatase 89 U/L (38-126) 08/11/24 07:11
Lipase 129 U/L (23-300) 08/11/24 07:11
Vital Signs and I&O:
Vital Signs
Temp Pulse Resp BP Pulse Ox
98.4 F 76 20 130/83 98
08/11/24 15:12 08/11/24 15:12 08/11/24 15:12 08/11/24 15:12 08/11/24 15:12
I&O
08/10/24 08/11/24 08/12/24
06:59 06:59 06:59
Intake Total 480 / 480
Balance 480 / 480
[2024-08-11 17:17] LABS: Calcium 8.8 mg/dl (8.4-10.2)
[2024-08-11] MEDS: NSS 500 IV (17:37)
[2024-08-11] MEDS: NULYTELY SOLUTION 4 LITERS PO (17:38)
[2024-08-11 17:44] LABS: Intact PTH 111.6 pg/ml (13.6-85.8)
[2024-08-12] VITALS (7 sets, daily range): BP systolic 122–142; BP diastolic 68–88; PULSE 71; O2SAT 97
[2024-08-12] MEDS: DILAUDID 1 MG IV (00:45)
[2024-08-12 08:22] LABS: Hematocrit 31.5 % (37.0-47.0); Hemoglobin 11.1 g/dL (12.0-16.0); Mean Corp Hgb Conc. 35.2 g/dL (33.0-37.0); Mean Corpuscular Hgb 36.2 pg (27.0-31.0); Mean Corpuscular Volume 102.6 fL (81.0-99.0); Mean Platelet Volume 9.1 fL (7.4-10.4); Platelet Count 80 10^3/uL (130-400); Red Blood Cell Count 3.07 10^6/uL (4.20-5.40); Red Cell Dist. Width 12.2 % (11.5-14.5)
[2024-08-12 08:42] LABS: ALT (SGPT) 55 U/L (0-35); AST (SGOT) 42 U/L (14-36); Albumin 3.4 g/dl (3.5-5.0); Alkaline Phosphatase 70 U/L (38-126); Blood Urea Nitrogen 8 mg/dl (7-17); Calcium 8.6 mg/dl (8.4-10.2); Carbon Dioxide 24 mmol/L (22-30); Chloride 107 mmol/L (98-107); Estimated Creatinine Clearance 73 ml/min; Glucose 90 mg/dl (70-99); Potassium 3.8 mmol/L (3.5-5.1); Sodium 138 mmol/L (135-145); Total Bilirubin 0.3 mg/dl (0.2-1.3); Total Protein 5.5 g/dl (6.3-8.2); eGFR > 60.00
[2024-08-12 09:27] LABS: % Immature Granulocytes 0.5 % (0-0.5); % Lymphocytes 47.2 % (20.5-51.1); % Neutrophils 40.3 % (42.2-75.2); Absolute Eosinophils 0.1 10^3/uL (0-0.7); Absolute Lymphocytes 0.9 10^3/uL (1.2-3.4); Absolute Monocytes 0.2 10^3/uL (0.1-0.6); Absolute Neutrophils 0.8 10^3/uL (1.4-6.5); Nucleated Red Blood Cells % 0 %
[2024-08-12] MEDS: PROTONIX IV 40 MG IV (09:55)
[2024-08-12] MEDS: NSS (PRESERVATIVE FREE) 10 ML IV (09:56)
[2024-08-12] MEDS: DIOVAN 160 MG PO (09:56)
[2024-08-12] MEDS: CRESTOR 20 MG PO (09:59)
[2024-08-12] MEDS: MIRAPEX 0.125 MG PO ×2 (09:59→15:48)
--- NOTE | 2024-08-12 12:31 | W.PN.HOSP.TC ---
Addendum entered and electronically signed by Manuel Lubin DO 08/12/24 13:33:
Discussed with GI service, EGD and colonoscopy relatively unremarkable for source of bleeding. Recommendation is to resume pantoprazole once daily and follow-up with GI in the office.
Medically stable for discharge. Follow-up with PCP, hematology, GI. Discussed with nursing.
Original Note:
Today's Communication/Plan
-
EGD, colon today
Assessment / Plan
Assessment / Plan
Gen-AAOx3, NAD
HEENT-NC, AT, anicteric, clear oral mm
Neck-supple
CV-reg, no M, +S1/S2
Lungs-clear B/L
Abd-soft, NT, ND
Ext-no edema
Musculoskeletal-no cyanosis, clubbing
Skin-warm and dry
Neuro-grossly non-focal
Psych-calm, cooperative
Clinical features of Parkinsonism - no evidence for acute stroke. Mirapex started by neurology service.
Chronic peripheral vertigo HX
- continue Fall precautions
- Avoid dopamine blockers
- Aspirin 81 mg once a day
- Discuss pt with Neurology- likely Parkinsonism/discussed starting Mirapex with patient
- PT eval -outpatient therapy recommended.
Acute GI bleed and RLQ abdominal pain, hemoglobin stable, patient still w severe RLQ abd pain. Hemoglobin 11.1 today.
-IV Dilaudid prn
-cont IVF
-IV PPI BID
-Awaiting EGD and colonoscopy today as per GI service.
Acute anemia -patient reports 1 episode of hematochezia since admission. History of recurrent, intermittent rectal bleeding. Assuming this is acute blood loss anemia. Hemodynamically stable. Macrocytosis noted. B12 and folic acid normal. Will
add on iron panel.
Pancytopenia -unclear etiology. Will refer to hematology on discharge.
Transaminitis, normal bilirubin -check GGT.
-patient said she's had this outpatient
Incidental thyroid nodule
-f/u w OP US
Essential HTN, stable
Full code
Anticipated Discharge: Within 24 hours
Subjective/Interval History
-
Date of Service: August 12, 2024
Patient seen and examined. No complaints.
Objective Data
-
Labs:
Laboratory Results
08/12/24
07:31
WBC 2.0 L*
Hgb 11.1 L
Hct 31.5 L
Plt Count 80 L
Sodium 138
Potassium 3.8
Chloride 107
Carbon Dioxide 24
BUN 8
Creatinine 0.7
Glucose 90
Calcium 8.6
Total Bilirubin 0.3
AST 42 H
ALT 55 H
Alkaline Phosphatase 70
Vital Signs:
Vital Signs
Temp Pulse Resp BP Pulse Ox
98.4 F 71 18 135/80 97
08/12/24 11:32 08/12/24 11:32 08/12/24 11:32 08/12/24 11:32 08/12/24 11:32
I&O
08/11/24 08/12/24 08/13/24
06:59 06:59 06:59
Intake Total 480 / 480 1140 / 1140
Balance 480 / 480 1140 / 1140
Review of Systems
-
History Source: Patient
All other systems: Reviewed and negative
[2024-08-12 13:07] LABS: Reticulocyte Count 1.3 % (0.4-2.8)
--- NOTE | 2024-08-12 13:21 | W.PN.UPDATE ---
Addendum entered and electronically signed by Rani Pettit MD 08/12/24 15:12:
NEEDS HEMATOLOGY F/U FOR CYTOPENIAS
Addendum entered and electronically signed by Rani Pettit MD 08/12/24 13:25:
GI will sign off ,pls call back as needed
Original Note:
Update Note
Progress Note Update
s/p EGD and colonoscopy
EGD-
- No gross lesions in the entire esophagus.
- Z-line irregular, 39 cm from the incisors. Biopsied.
- 1 cm hiatal hernia.
- A previous surgical anastomosis was found,
characterized by erythema and an intact staple line.
Biopsied.
- Erythematous duodenopathy. Biopsied.
- Normal second portion of the duodenum.
COLONOSCOPY:
- The examined portion of the ileum was normal.
- Erythematous mucosa at the appendiceal orifice. Biopsied.
- Diverticulosis in the sigmoid colon and in the descending colon.
- Internal hemorrhoids
Plan
- Await pathology results.
- Start omeprazole 20mg or pantoprazole 40mg po daily
- Repeat colonoscopy in 5 years for surveillance.
- Telephone GI clinic for pathology results in 2 weeks.
- Resume previous diet.
- No ibuprofen, naproxen, or other non-steroidal anti-inflammatory drugs for 5 days after biopsy.
- Has h/o elevated transaminases since april 2023, needs OP GI follow up.
[2024-08-12 13:23] LABS: GGTP 157 U/L (12-43); Iron 86 ug/dl (37-170)
[2024-08-12 13:32] LABS: Percent Saturation 30 % (20-50); Total Iron Binding Capacity 279 ug/dl (265-497)
--- NOTE | 2024-08-12 13:32 | W.DS.TRANS ---
DC Summary - [employer]
-
Discharge Instructions:
Discharge Diagnosis/Procedures Possible Parkinson's disease, GI bleed,
pancytopenia, elevated liver function tests
Diet Regular
Activity As tolerated
Driving Restrictions As prior to admission
Bathing Restrictions None
Blood Work CBC in 1 week with your primary care doctor
Instructions:
Stand-Alone Forms:
Changes to Home Medications: Yes
Discharge Medications:
DC Medications w/original date entered in [employer]
cholecalciferol (vitamin D3) 50 mcg (2,000 unit) capsule (Vitamin D3) 100 mcg PO DAILY Supplement 08/10/24
clonazepam 0.5 mg tablet 0.5 mg PO BIDPRN PRN tinnitis 08/10/24
methocarbamol 750 mg tablet 750 mg PO BIDPRN PRN muscle spasm 08/10/24
rosuvastatin 20 mg tablet 20 mg PO DAILY High Cholesterol 08/10/24
valsartan 160 mg tablet 160 mg PO BID Blood Pressure 08/10/24
pantoprazole 40 mg tablet,delayed release 40 mg PO DAILY #30 tabs 08/12/24
pramipexole 0.125 mg tablet 0.125 mg PO TID #60 tabs 08/12/24
Home Medication Changes
Stop meloxicam
Pending Results: No
--- NOTE | 2024-08-12 13:59 | CM ---
Chart reviewed and patient has been cleared for discharge today, IMM completed and placed on chart.
Plan; Home with spouse today no needs.
--- NOTE | 2024-08-12 16:03 | PTCARENOTE ---
Rn flow - Patient requesting a note for work [place] texted Dr. Lubin.
== END 2024-08-12 17:32 | disposition home or self-care (01) | DRG 57 ==
LOC: 4 WEST ACU 13:34
PROVIDERS: Internal Medicine; Internal Medicine Gastroenterology; Nurse Practitioner Adult Health; Registered Nurse; ADMITTING PHYSICIAN Internal Medicine; ATTENDING PHYSICIAN Hospitalist; CONSULT PHYSICIAN Internal Medicine Gastroenterology; CONSULT PHYSICIAN Psychiatry & Neurology Neurology; EMERGENCY PHYSICIAN Student in an Organized Health Care Education/Training Program; FAMILY PHYSICIAN Family Medicine Sports Medicine
PROC: 0DB48ZX Excision of Esophagogastric Junction, Via Natural or Artificial Opening Endoscopic, Diagnostic (ICD-10-PCS; 2024-08-10)
PROC: 0DB98ZX Excision of Duodenum, Via Natural or Artificial Opening Endoscopic, Diagnostic (ICD-10-PCS; 2024-08-10)
PROC: 0DBE8ZX Excision of Large Intestine, Via Natural or Artificial Opening Endoscopic, Diagnostic (ICD-10-PCS; 2024-08-10)
PROC: 0DB68ZX Excision of Stomach, Via Natural or Artificial Opening Endoscopic, Diagnostic (ICD-10-PCS; 2024-08-10)
DX: G20.C Parkinsonism, unspecified (principal); K92.1 Melena; D61.818 Other pancytopenia; D62 Acute posthemorrhagic anemia; K44.9 Diaphragmatic hernia without obstruction or gangrene; K31.89 Other diseases of stomach and duodenum; K57.30 Diverticulosis of large intestine without perforation or abscess without bleeding; K64.8 Other hemorrhoids; R10.31 Right lower quadrant pain; H81.399 Other peripheral vertigo, unspecified ear; R74.01 Elevation of levels of liver transaminase levels; I10 Essential (primary) hypertension; E78.00 Pure hypercholesterolemia, unspecified; D75.89 Other specified diseases of blood and blood-forming organs; Z98.0 Intestinal bypass and anastomosis status; Z80.0 Family history of malignant neoplasm of digestive organs; Z11.52 Encounter for screening for COVID-19
CPT/HCPCS: 88305; 70450; 70496; 70498; 70551; 74177; 80053; 80061; 80076; 82607; 82728; 82746; 82962; 82977; 83036; 83540; 83550; 83690; 83970; 84484; 85014; 85018; 85025; 85027; 85045; 85610; 85652; 85730; 86141; 86704; 86705; 86706; 86708; 86709; 86803; 86850; 86900; 86901; 87340; 87811; 88342; 92523; 92610; 93005; 97116; 97167; 99285; Q9967

== ENCOUNTER 2024-10-16 12:15 | Emergency (ER) | payer OTHER, BC, SELFPAY ==
[2024-10-16 12:27] VITALS: BP 130/97
--- NOTE | 2024-10-16 14:33 | ED.GENMED ---
History of Present Illness
General
Chief Complaint: Fall
Time Seen by Provider: 10/16/24 14:33
History of Present Illness
History of Present Illness:
TIME OF INITIAL ENCOUNTER: 3 PM
HPI: 2 nights ago, the patient slipped in the shower and injured the left buttock region. Since that time she has been having difficulty walking. She tried to work yesterday but she could not. The pain is primarily in the upper left buttock
region but she continues to state that is the right hip. The pain radiates down to the knee and up toward the rib area.
EXAM:
GENERAL: Well appearing in no distress
CERVICAL SPINE: No midline c-spine tenderness with excellent AROM
HEAD: No evidence of craniofacial trauma
CHEST: No chest wall tenderness, normal heart sounds
LUNGS: Equal lung sounds, no respiratory distress
ABDOMEN: No abdominal tenderness, no peritoneal signs
EXTREMITIES: Decreased active range of motion at the left hip due to pain, no significant pain with passive range of motion into rotation at the hip, there is some mild to moderate tenderness in the upper buttock soft tissue, no significant pelvis
tenderness, no midline L-spine tenderness
NEURO: Excellent strength all extremities, appropriate mental status, normal speech/language
NUMBER AND COMPLEXITY OF PROBLEMS ADDRESSED AT THE ENCOUNTER
� Chronic conditions affecting care: High blood pressure, hyperlipidemia
� Acute Exacerbation and/or Progression of Chronic Illness: This is an acute problem
� Differential Diagnosis includes: Soft tissue contusion, occult hip fracture, occult pelvis fracture
AMOUNT AND/OR COMPLEXITY OF DATA TO BE REVIEWED AND ANALYZED
� I performed an independent evaluation of and my interpretation is:
EKG:
CT: CT imaging shows no acute abnormality
X-rays: X-ray of the left hip and pelvis showed no acute abnormality
Laboratory Studies:
Other:
� Review of other/old records: The patient was admitted here with lower GI bleeding 2 months ago
� Clinical information was obtained by an independent historian: None needed
� Prescriptions/Medications Considered but not given:
� Further testing considered but not performed:
RISK OF COMPLICATIONS AND/OR MORBIDITY OR MORTALITY OF PATIENT MANAGEMENT
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
� Discussion with other providers: Physical therapy�had recommended rehab
� Escalation of care including admission/observation vs risk of discharge considered: The patient describes the pain is rather severe. Will give a dose of Vicodin. X-rays unremarkable. Will obtain CT imaging for further
evaluation.
ANY OTHER UPDATES:
7 PM: The patient has been up walking around. She declined crutches/cane/walker. She states that she cannot take NSAIDs as she had recent GI bleeding. She wants to be discharged. Will give short course of narcotic analgesia
Past History
Past History
ED Past Medical History: HTN and Hypercholesterolemia
ED Past Surgical History: Cholecystectomy and Other (Gastric surgery/ERCP)
Phy Exam
Physical Exam
Physical Exam:
See HPI
Course
Orders/Labs/Results
Orders:
Orders
10/16/24 12:31
Hip, Left 2-3 Views [CR Hip - LT w/wo Pel 2-3 Vw*] Urgent
Comment:
Reason For Exam: fall
Include a pelvis x-ray?: Yes
10/16/24 15:00
CT Pelvis W/o Iv Contrast Urgent
Comment:
Reason For Exam: trauma L hip pain, neg xray
PT Consult [Pt Eval And Treat] Urgent
Treatment: intractable L hip pain
Activity Level: Out of Bed- Ad Mary
10/16/24 15:01
Hydrocodone 5/APAP 325 [[place] 5/325] 1 tablet PO NOW STA
10/16/24 16:36
Ketorolac [Toradol] 30 mg IM NOW STA
Vital Signs
Initial and Last Documented VS:
Initial Vital Signs
Temp Pulse Resp BP Pulse Ox
36.6 C 120 16 130/97 96
10/16/24 12:27 10/16/24 12:27 10/16/24 12:27 10/16/24 12:27 10/16/24 12:27
Last Documented Vital Signs
Temp Pulse Resp BP Pulse Ox
36.6 C 81 16 162/104 95
10/16/24 12:27 10/16/24 16:56 10/16/24 16:56 10/16/24 16:56 10/16/24 16:56
*Critical Care Note
Total Time (30-74mins, 75-104mins- exclusive of procedures): Not Applicable
ED Attending Note
-
Portions of this chart may have been created with voice recognition software.� Occasional wrong word or��sound alike� substitutions may have occurred due to the inherent limitations of voice recognition software.
Discharge Plan
Departure
Patient Disposition: Home (Routine Discharge)
Date of Disposition: 10/16/24
Time of Disposition: 18:59
Patient with high blood pressure during this ER visit?: Yes
Discharge Problem:
Contusion of left buttock
Instructions: Contusion (DC), BLOOD PRESSURE
Prescriptions:
New
oxycodone-acetaminophen [Percocet] 5-325 mg tablet
1 - 2 tab PO Q6HPRN PRN (Reason: pain) Qty: 14 0RF
No Action
clonazepam 0.5 mg tablet
0.5 mg PO BIDPRN PRN (Reason: tinnitis)
methocarbamol 750 mg tablet
750 mg PO BIDPRN PRN (Reason: muscle spasm)
valsartan 160 mg tablet
160 mg PO BID
rosuvastatin 20 mg tablet
20 mg PO DAILY
cholecalciferol (vitamin D3) [Vitamin D3] 50 mcg (2,000 unit) Capsule
100 mcg PO DAILY
pantoprazole 40 mg Tablet,Delayed Release (Dr/Ec)
40 mg PO DAILY Qty: 30 0RF
pramipexole 0.125 mg Tablet
0.125 mg PO TID Qty: 60 0RF
Referrals:
Shahid Bynum MD [Active] - Follow up in 2-3 days
Oneal Dockery DO [Family Provider] -
Activity Restrictions/Additional Instructions:
I am sending a prescription for a short course of a narcotic to the [facility] pharmacy at [address] the x-ray of the hip and pelvis did not show any abnormality and given your ongoing symptoms a CT of the pelvis was also obtained which confirms that
there is no sign of any fracture. I have also given you the contact information for local orthopedist to follow-up with, Dr. Bynum.
Interventions
Interventions:
*Risk Screen - Suicide Last Done: 10/16/24 12:27
*General Assessment Last Done: 10/16/24 14:32
*Neglect/Abuse Screening Last Done: 10/16/24 12:27
*ED- Fall Risk Assessment Last Done: 10/16/24 14:32
*ED COVID-19 Vaccine History Last Done: 10/16/24 14:31
ED-Musculoskeletal Assessment Last Done: 10/16/24 14:33
ED- Neurological Assessment Last Done: 10/16/24 14:32
ED-Skin Assessment Last Done: 10/16/24 14:32
Discharge Date and Time
Print Language: SLOVENIAN
[2024-10-16] MEDS: NORCO 5/325 1 TABLET PO (15:14)
[2024-10-16 15:16] VITALS: BMI 25.8
[2024-10-16] MEDS: TORADOL 30 MG IM (16:52)
[2024-10-16 16:56] VITALS: BP 162/104
== END 2024-10-16 19:15 | disposition home or self-care (01) ==
LOC: EMR 12:15
PROVIDERS: EMERGENCY PHYSICIAN Emergency Medicine; FAMILY PHYSICIAN Family Medicine Sports Medicine
DX: S30.0XXA Contusion of lower back and pelvis, initial encounter (principal); W18.2XXA Fall in (into) shower or empty bathtub, initial encounter; E78.00 Pure hypercholesterolemia, unspecified; I10 Essential (primary) hypertension; Z90.49 Acquired absence of other specified parts of digestive tract
CPT/HCPCS: 99284; 72192; 73502

== ENCOUNTER → 2025-04-13 09:24 | Outpatient (REF) | payer OTHER, BC, SELFPAY | LOC: RAD 09:24 | PROVIDERS: ATTENDING PHYSICIAN Anesthesiology Pain Medicine; FAMILY PHYSICIAN Family Medicine Sports Medicine | DX: M54.14 Radiculopathy, thoracic region (principal) | CPT/HCPCS: 72072 ==